=== PATIENT | male | born 1960 | race Hispanic/Latino ===

== ENCOUNTER 2018-04-13 09:06 | Day surgery (SDC) | payer BC ==
[2018-04-12 15:12] VITALS: BMI 29.5
[2018-04-13] MEDS ORDERED: Propofol 10 mg/ml Inj (20 ML) ONE ×3 (13:42→13:43)
[2018-04-13 14:50] VITALS: TEMP 97.6
[2018-04-13 14:51] VITALS: RESP 10; O2SAT 100
[2018-04-13 15:08] VITALS: BP 129/82; PULSE 64
== END 2018-04-13 15:04 | disposition home or self-care (01) ==
LOC: C.ENDO 09:06
PROVIDERS: ATTEND Internal Medicine Gastroenterology
DX: Z12.11 Encounter for screening for malignant neoplasm of colon (principal); K57.30 Diverticulosis of large intestine without perforation or abscess without bleeding; K64.8 Other hemorrhoids
CPT/HCPCS: 45378; J2704

== ENCOUNTER 2018-11-09 06:09 | Day surgery (SDC) | payer BC ==
[2018-11-08 14:03] VITALS: BMI 30.8
[2018-11-09] MEDS ORDERED: Lactated Ringer's 1,000 ML IV ONE (07:55)
--- NOTE | 2018-11-09 07:58 | CP.SDSHP ---
Same Day Surgery H & P - History Proposed Procedure: colonoscopy Pre-Op Diagnosis: screening - Allergies Allergies: Allergies dog dander Allergy (Verified 04/12/18 15:12) CONGESTION mold Allergy (Verified 04/13/18 10:32) CONGESTION SEASONAL - Physical Exam General Appearance: NAD Vital Signs: Vital Signs 11/09/18 06:25 Temperature 97.1 F L Pulse Rate 66 Respiratory 19 Rate Blood Pressure 107/71 O2 Sat by Pulse 97 Oximetry Mental Status: Alert & Oriented x3 Neuro: WNL Heart: WNL Lungs: WNL GI: WNL - {Optional Preform as Required} Abdomen: WNL - Impression Pt. Evaluated Today:Candidate for Anesthesia & Procedure: Yes - Date & Time Date: 11/09/18 Time: 07:58 Short Stay Discharge - Short Stay Discharge Admitting Diagnosis/Reason for Visit: SCREENING Disposition: HOME/ ROUTINE
[2018-11-09] MEDS ORDERED: Propofol 10 mg/ml Inj (20 ML) ONE (08:00)
[2018-11-09] MEDS ORDERED: Midazolam 2 MG/2 ML VIAL ONE (08:00)
[2018-11-09 10:55] VITALS: BP 109/62; PULSE 64; RESP 14; TEMP 97.5; O2SAT 99
== END 2018-11-09 09:20 | disposition home or self-care (01) ==
LOC: C.ENDO 06:09
PROVIDERS: ATTEND Internal Medicine Gastroenterology
DX: Z12.11 Encounter for screening for malignant neoplasm of colon (principal); Z53.8 Procedure and treatment not carried out for other reasons; D12.5 Benign neoplasm of sigmoid colon; K57.90 Diverticulosis of intestine, part unspecified, without perforation or abscess without bleeding; K64.8 Other hemorrhoids
CPT/HCPCS: 45380; 88305; J2250; J2704; J7120